=== PATIENT | male | born 1960 | race African-American/Black ===

== ENCOUNTER 2017-12-13 13:01 | Emergency (ER) | payer OTHER ==
[~2017-12-13] VITALS: Ht 185.4 cm; Wt 144.8 kg
[~2017-12-13 13:01] MED LIST: ALLOPURINOL300 MG PO; AMLODIPINE10 MG OR; AMLODIPINE2.5 MG PO; AVANDIA4 MG OR; BABY ASPIRIN81 MG OR; CEPHALEXIN500 MG PO; DIGOXIN0.25 MG PO; EQL ASPIRIN LOW81 M1 PO; FLEXERIL10 MG PO; GLYB/METFO5 MG/500 M OR; HUMULIN 70/30 SC; KEFLEX500 M1 PO; LOPRESSOR50 M1 PO; LORTAB 10-325 M1 TAB PO; MAXZIDE OR; MEDDOSEPAK PO; METFORMIN500 MG PO; METOPROLOL25 M1 OR; MICARDIS80 MG PO; NAPROSYN500 MG PO; PLAVIX75 MG PO; POOR HISTORIAN; ROBITUSSIN AC10 ML PO; TAM75CAP PO; TEMAZEPAM30 MG PO; ZOCOR40 MG OR
[2017-12-13 14:03] LABS: HEMATOCRIT 40.5 % (39.0-50.0); HEMOGLOBIN 13.6 g/dl (14.0-18.0); IMMATURE GRANULOCYTES 0.3 % (0.0-1.0); MEAN CELL VOLUME 90.2 fL CALC (80.0-100.0); MEAN CORPUSCULAR HGB 30.3 pG CALC (26.0-32.0); MEAN CORPUSCULAR HGB CONC 33.6 g/L CALC (32.0-36.0); NEUT# 4.29 thou/uL (1.82-7.42); RED BLOOD COUNT 4.49 mill/uL (4.70-6.10); RED CELL DISTRI WIDTH 14.6 % (11.5-15.5)
[2017-12-13 14:29] LABS: INFLUENZA A NONE DETECTED (NONE DETECT); INFLUENZA B NONE DETECTED (NONE DETECT)
[2017-12-13 14:33] LABS: ALKALINE PHOSPHATASE 73 u/l (38-126); ANION GAP 15 (6-22 (CALC)); BILIRUBIN, TOTAL 0.5 mg/dL (0.0-1.4); BUN 11 mg/dL (9-20); BUN/CREATININE RATIO 10 (12-20 (CALC)); CALCIUM 9.2 mg/dL (8.4-10.2); CARBON DIOXIDE 25 mmol/l (22-30); CHLORIDE 101 mmol/l (95-108); CREATININE 1.2 mg/dL (0.7-1.3); GFR > 60 ML/MIN (>=60 (CALC)); GFR FOR AFR.AMER. > 60 ML/MIN (>=60 (CALC)); GLUCOSE 115 mg/dL (75-110); POTASSIUM 3.6 mmol/l (3.5-5.1); SGOT/AST 33 u/l (17-59); SGPT/ALT 31 u/l (21-72); SODIUM 138 mmol/l (137-146); TOTAL PROTEIN 7.5 g/dL (6.3-8.2)
[2017-12-13] MEDS ORDERED: LIPITOR20 MG PO (15:54)
[2017-12-13 15:55] VITALS: BP 120/60
== END 2017-12-13 16:40 | disposition short-term general hospital (02) | DRG 293 ==
LOC: ED 13:01
PROVIDERS: Emergency Medicine
DX: I50.9 Heart failure, unspecified (principal); I25.2 Old myocardial infarction; J44.9 Chronic obstructive pulmonary disease, unspecified; R79.89 Other specified abnormal findings of blood chemistry; R05 Cough; Z72.0 Tobacco use; R50.9 Fever, unspecified; R11.2 Nausea with vomiting, unspecified